=== PATIENT | female | born 1950 | race Two or more races ===

== ENCOUNTER 2024-12-27 14:12 | Inpatient (IN) | payer OTHER ==
[~2024-12-27] VITALS: Ht 157.5 cm; Wt 73.5 kg
[2024-12-27] MEDS ORDERED: AMLODIPINE BESY10 MG PO (14:30)
[2024-12-27] MEDS ORDERED: SYNJARDY XR 5-1 EACH PO (14:30)
[2024-12-27] MEDS ORDERED: LOSARTAN POTAS100 MG PO (14:30)
[2024-12-27] MEDS ORDERED: FOLIC ACID1 MG PO (14:30)
[2024-12-27] MEDS ORDERED: GABAPENTIN300 M2 PO (14:30)
[2024-12-27] MEDS ORDERED: GLIPIZIDE10 MG PO (14:30)
[2024-12-27] MEDS ORDERED: ROSUVASTATIN CA10 MG PO (14:31)
[2024-12-27] MEDS ORDERED: LEVOFLOXACIN750 MG PO (14:31)
--- NOTE | 2024-12-27 14:32 | NUR ---
SE RECIBE PACIENTE FEMENINA A SALLY DE EMERGENCIAS ALERTA Y ORIENTADA X3. REFIERE VENIR PORQUE VERBALIZA QUE DAVIS TENIDO NIVELES DE GLUCOSA INESTABLE DESDE EL 10 [place] HASTA EL MIRELLA DE HO, CON LECTURAS VARIABLES ENTRE HIPOGLUCEMIA E HIPERGLUCEMIA, SIENDO EL RESULTADO MAS ALTO 355MG/DL. INDICA QUE ES DIABETICA E HIPERTENSA QUE ADEMAS DAVIS TENIDO PRESIONES ARTERIALES BAJAS DE LO USUAL. INFORMO QUE INICIO EL MEDICAMENTO SYNJARDI EL 10 DE [place] Y TRAS LA PRIMERA DOSIS PRESENTO NAUSEAS, VOMITOS Y MAREOS, Y LUEGO DE ESO EMPEZO LA INESTABILIDAD DE LA GLUCOSA. ADICIONALMENTE REFIERE TENER HX PREVIO DE BRONQUITIS, POR LO QUE DAVIS ESTADO EN [place],JACKIE LA TOS AUN PERSISTE.
--- NOTE | 2024-12-27 19:09 | NUR ---
SE ORIENTA APTE SOBRE [place] MEDICO Y LA MISMA REFIERE ENTENDER. SE RECOLECTAN MUESTRAS DE LAB YOON ORDEN MEDICA BAJO MEDIDAS ASEPTICAS.
[2024-12-27 19:13] LABS: EOS # 0.19 (0.04-0.54); EOS % 3.7 % (0.7-7.0); HEMATOCRIT 43.9 % (34.1-44.9); HEMOGLOBIN 14.9 g/dL (11.2-15.7); LYMPH # 2.67 (1.18-3.74); LYMPH % 52.7 % (19.3-53.1); MONO # 0.52 (0.24-0.82); MONO % 10.3 % (4.7-12.5); NEUT # 1.63 (1.56-6.13); NEUT % 32.1 % (34.0-71.1); PLATELET COUNT 152 K/uL (163-369); RED BLOOD COUNT 4.97 M/uL (3.93-5.22); RED CELL DISTRIBUTION WIDTH 12.8 % (11.6-14.4)
[2024-12-27 20:03] LABS: INFLUENZA A AG NEGATIVE (NEGATIVE)
[2024-12-27 20:04] LABS: ALBUMIN 3.9 gm/dL (3.4-5.0); BILIRUBIN TOTAL 0.39 mg/dL (0.3-1.2); CALCIUM 8.7 mg/dL (8.5-10.1); CREATININE SERUM 2.15 mg/dL (0.55-1.02); GFR 22.47; GLOBULINA 4.1 G/DL (2.4-3.5); POTASSIUM 3.79 mEq/L (3.5-5.1)
[2024-12-27 20:06] LABS: COVID-19 AG NEGATIVE (NEGATIVE)
[2024-12-27] MEDS ORDERED: CEFTRIAXONE SODIUM 2,000 MG VIAL IV ONE (23:45)
[2024-12-27] MEDS ORDERED: AZITHROMYCIN 500 MG VIAL IV ONE (23:45)
[2024-12-27] MEDS ORDERED: 0.9 % SODIUM CHLORIDE 1,000 ML IV ONE (23:45)
[2024-12-28] MEDS ORDERED: CEFTRIAXONE SODIUM 2,000 MG in 0.9 % SODIUM CHLORIDE 100 ML IV SCH (17:14)
[2024-12-28] MEDS ORDERED: DEXTROSE 50 % IN WATER 0.5 G/ML VIAL IV PRN (17:15)
[2024-12-28] MEDS ORDERED: ACETAMINOPHEN 500 MG GEL..CAP PO PRN (17:15)
[2024-12-28] MEDS ORDERED: INSULIN LISPRO 1,000 UNIT/10 ML UNITS SUBCUTANEO PRN (17:15)
[2024-12-28] MEDS ORDERED: 0.9 % SODIUM CHLORIDE 1,000 ML IV SCH (17:15)
[2024-12-28] MEDS ORDERED: ONDANSETRON HCL 4 MG in 0.9 % SODIUM CHLORIDE 50 ML IV PRN (17:15)
[2024-12-28 21:00] VITALS: BP 131/63; O2SAT 95
[2024-12-28] MEDS ORDERED: BUDESONIDE 0.5 MG/2 ML AMPUL.NEB IH SCH (21:00)
[2024-12-28] MEDS ORDERED: IPRATROPIUM/ALBUTEROL SULFATE 3 ML AMPUL.NEB IH SCH (21:00)
[2024-12-28] MEDS ORDERED: GUAIFENESIN/DEXTROMETHORPHAN 100MG/10ML BLIST.PACK PO ONE (23:45)
[2024-12-29] MEDS ORDERED: GUAIFENESIN 200 MG/10 ML BLIST.PACK PO SCH
[2024-12-29 01:19] VITALS: BP 129/73
[2024-12-29 06:46] LABS: URINE EPITHELIAL CELLS 25.3 uL (0.0-38.8); URINE RBC 2.5 uL (0.0-20.8); URINE WBC 85.7 uL (0.0-23.2)
[2024-12-29 06:54] LABS: PH,URINE 5.5 (5.0-8.0); URINE APPEARANCE Clear; URINE BILIRRUBIN Negative (NEGATIVE); URINE BLOOD Negative; URINE COLOR Yellow; URINE KETONE Negative (NEGATIVE); URINE LEUKOCYTE Moderate; URINE NITRATE Negative; URINE PROTEIN Negative (NEGATIVE); URINE UROBILINOGEN 0.2 E.U./dl
[2024-12-29 07:06] LABS: URINE CAST 0.14 uL (0.0-1.40); URINE GLUCOSE 100 MG/DL (NEGATIVE)
[2024-12-29 08:09] LABS: C-REACTIVE PROTEIN < 0.29 MG/DL (0.00-0.29); CHOL HDL RATIO 2.2 (0-5.0); CHOLESTEROL 84 mg/dL (0-200); HDL 38 mg/dl (40-60); LDL 30 mg/dl (0-130); TRIGLYCERIDES 79 mg/dL (0-150); VLDL 15 (0-39)
[2024-12-29] MEDS ORDERED: LOSARTAN POTASSIUM 100 MG TABLET PO SCH (09:00)
[2024-12-29] MEDS ORDERED: GABAPENTIN 300 MG CAPSULE PO SCH (09:00)
[2024-12-29] MEDS ORDERED: AMLODIPINE BESYLATE 10 MG TABLET PO SCH (09:00)
[2024-12-29 09:02] VITALS: BP 115/67; O2SAT 98
[2024-12-29] MEDS ORDERED: FAMOTIDINE/PF 20 MG/2 ML VIAL IV SCH (12:00)
[2024-12-29] MEDS ORDERED: METHYLPREDNISOLONE SOD SUCC 40 MG VIAL IV SCH (13:00)
[2024-12-29] MEDS ORDERED: ROSUVASTATIN CALCIUM 10 MG TABLET PO SCH (17:00)
[2024-12-29 17:10] VITALS: BP 145/79; O2SAT 92
[2024-12-29 17:55] LABS: ALBUMIN 3.3 gm/dL (3.4-5.0); BILIRUBIN TOTAL 0.44 mg/dL (0.3-1.2); CALCIUM 7.9 mg/dL (8.5-10.1); CREATININE SERUM 1.09 mg/dL (0.55-1.02); GFR 49.2; GLOBULINA 2.9 G/DL (2.4-3.5); POTASSIUM 4.19 mEq/L (3.5-5.1); TOTAL PROTEIN 6.2 gm/dL (6.4-8.2)
[2024-12-29 19:50] LABS: HEMATOCRIT 37.1 % (34.1-44.9); HEMOGLOBIN 12.9 g/dL (11.2-15.7); MEAN CORPUSCULAR HEMOGLOBIN 30.6 pg (25.6-32.2); PLATELET COUNT 123 K/uL (163-369); RED BLOOD COUNT 4.21 M/uL (3.93-5.22)
[2024-12-29 19:51] LABS: BASO % 0.9 % (0.1-1.2); EOS # 0.06 (0.04-0.54); EOS % 1.7 % (0.7-7.0); LYMPH # 0.89 (1.18-3.74); LYMPH % 25.9 % (19.3-53.1); MONO # 0.09 (0.24-0.82); MONO % 2.6 % (4.7-12.5); NEUT # 2.36 (1.56-6.13); NEUT % 68.6 % (34.0-71.1)
[2024-12-29] MEDS ORDERED: AZITHROMYCIN 500 MG VIAL IV ONE (20:51)
[2024-12-29] MEDS ORDERED: AZITHROMYCIN 500 MG VIAL IV SCH (21:00)
[2024-12-29] MEDS ORDERED: INSULIN GLARGINE,HUM.REC.ANLOG 1,000 UNITS/10 ML UNITS SUBCUTANEO SCH (21:00)
[2024-12-30 00:47] VITALS: BP 110/70; O2SAT 98
[2024-12-30] MEDS ORDERED: AZITHROMYCIN 500 MG VIAL IV ONE ×2 (07:46→21:51)
[2024-12-30 09:00] VITALS: BP 125/78; O2SAT 92
[2024-12-30 09:45] LABS: CALCIUM 8.2 mg/dL (8.5-10.1); CREATININE SERUM 1.27 mg/dL (0.55-1.02); GFR 41.25; POTASSIUM 4.52 mEq/L (3.5-5.1)
[2024-12-30] MEDS ORDERED: DOCUSATE SODIUM 100MG CAP PO SCH (17:00)
[2024-12-30 17:25] VITALS: BP 158/88
[2024-12-31 02:47] VITALS: BP 134/66; O2SAT 92
[2024-12-31] MEDS ORDERED: AZITHROMYCIN 500 MG VIAL IV ONE (07:53)
[2024-12-31 08:00] VITALS: BP 154/74; O2SAT 96
[2024-12-31] MEDS ORDERED: INSULIN LISPRO 1,000 UNIT/10 ML UNITS SUBCUTANEO SCH (08:00)
[2024-12-31] MEDS ORDERED: INSULIN GLARGINE,HUM.REC.ANLOG 1,000 UNITS/10 ML UNITS SUBCUTANEO SCH (09:00)
[2024-12-31 10:11] LABS: BASO % 0.1 % (0.1-1.2); HEMATOCRIT 33.7 % (34.1-44.9); HEMOGLOBIN 11.5 g/dL (11.2-15.7); LYMPH # 1.05 (1.18-3.74); LYMPH % 13.7 % (19.3-53.1); MEAN CORPUSCULAR HEMOGLOBIN 29.7 pg (25.6-32.2); MONO % 3.9 % (4.7-12.5); NEUT % 81.3 % (34.0-71.1); PLATELET COUNT 152 K/uL (163-369); RED BLOOD COUNT 3.87 M/uL (3.93-5.22); RED CELL DISTRIBUTION WIDTH 13.1 % (11.6-14.4)
[2024-12-31 18:24] VITALS: BP 158/75
[2025-01-01 02:50] VITALS: BP 138/66
[2025-01-01 08:22] VITALS: BP 160/77; O2SAT 99
[2025-01-01] MEDS ORDERED: FAMOtidine 20 MG TABLET PO SCH (09:00)
[2025-01-01] MEDS ORDERED: AZITHROMYCIN 500 MG VIAL IV ONE (09:37)
== END 2025-01-01 13:34 | disposition home or self-care (01) | DRG 194 ==
LOC: ER 14:15 → MEDJ 12-28 17:15
PROVIDERS: General Practice; Preventive Medicine Public Health & General Preventive Medicine; ADMIT Internal Medicine; ATTEND Internal Medicine
PROC: BB24ZZZ Computerized Tomography (CT Scan) of Bilateral Lungs (ICD-10-PCS; principal; 2024-12-27)
PROC: 3E0F7GC Introduction of Other Therapeutic Substance into Respiratory Tract, Via Natural or Artificial Opening (ICD-10-PCS; 2024-12-29)
DX: J18.9 Pneumonia, unspecified organism (principal); N17.9 Acute kidney failure, unspecified; E11.22 Type 2 diabetes mellitus with diabetic chronic kidney disease; I12.9 Hypertensive chronic kidney disease with stage 1 through stage 4 chronic kidney disease, or unspecified chronic kidney disease; N18.9 Chronic kidney disease, unspecified; Z79.4 Long term (current) use of insulin; I95.9 Hypotension, unspecified